=== PATIENT | male | born 1970 | race Caucasian/White ===

== ENCOUNTER 2018-08-19 11:10 | Outpatient (CLI) | payer OTHER ==
--- NOTE | 2018-08-19 12:34 | RAD ---
LUMBAR SPINE SERIES 4 VIEWS INCLUDING FLEXION AND EXTENSION: HISTORY: Low back pain. FINDINGS: Vertebral bodies are normal in height. There is marked disk narrowing at L5-S1. Osteophytic changes without significant disk narrowing are seen at L3-4 and L4-5. Limited motion is seen in the flexion or extension views. No spondylolisthesis. IMPRESSION: Degenerative changes of the spine. Marked disk narrowing at L5-S1. Prominent degenerative facet mat nges are seen. POS: [facility]
== END 2018-08-19 11:11 | disposition home or self-care (01) ==
LOC: TBSIIMAG 11:10
PROVIDERS: ATTEND Neurological Surgery
DX: M54.5 Low back pain (principal); M47.816 Spondylosis without myelopathy or radiculopathy, lumbar region; M51.37 Other intervertebral disc degeneration, lumbosacral region
CPT/HCPCS: 72110

== ENCOUNTER 2018-10-22 13:43 | Outpatient (CLI) | payer OTHER ==
--- NOTE | 2018-10-22 14:47 | MRI ---
MRI Lumbar Spine Noncontrast: HISTORY: Back pain, intervertebral disc disease COMPARISON: None FINDINGS: Conus medullaris is normal in morphology and terminates at the L1 level. Multilevel degenerative facet hypertrophy is present bilaterally. L1-2:No significant stenosis L2-3:Mild, right asymmetric disc bulge with slight effacement of ventral thecal sac L3-4:Mild broad-based disc bulge with slight effacement of ventral thecal sac L4-5:Moderate-sized disc extrusion of the right subarticular zone with impingement of traversing righ t L5 nerve root and moderate compression of the right aspect of the thecal sac. Mild bilateral neural foraminal narrowing. L5-S1:Degenerative disc disease with disc space narrowing and broad-based disc osteophyte producing m ild bilateral neural foraminal narrowing, left greater than right IMPRESSION: Moderate-sized disc extrusion at L4-5, with impingement of right L5 nerve root and moderate compressi on of thecal sac.
== END 2018-10-22 13:44 | disposition home or self-care (01) ==
LOC: TBSIIMAG 13:43
PROVIDERS: ATTEND Specialist
DX: M51.17 Intervertebral disc disorders with radiculopathy, lumbosacral region (principal); M51.26 Other intervertebral disc displacement, lumbar region; G95.20 Unspecified cord compression
CPT/HCPCS: 72148

== ENCOUNTER 2018-12-31 11:25 | Outpatient (CLI) | payer OTHER ==
--- NOTE | 2018-12-31 12:07 | RAD ---
XR Chest Pa Lat STANDARD HISTORY: Cough COMPARISON: 10/04/2016 FINDINGS: The heart size is normal. The lungs are well expanded without focal areas of consolidation, pneumothorax or pleural effusions. IMPRESSION: No radiographic evidence of acute cardiopulmonary process.
== END 2018-12-31 11:26 | disposition home or self-care (01) ==
LOC: BICRAD 11:25
PROVIDERS: ATTEND Family Medicine
DX: R05 Cough (principal)
CPT/HCPCS: 36415; 71046; 80053; 80061; 85025

== ENCOUNTER 2021-06-16 13:47 | Observation (INO) | payer BC, OTHER ==
[2021-06-16 14:25] LABS: #Basophils 0.1 thou/uL (0.0-0.2); #Eosinphils 0.5 thou/uL (0.0-0.7); #Lymphocytes 2.4 thou/uL (1.20-3.40); #Neutrophils 5.6 thou/uL (1.40-6.50); %Basophils 0.6 % (0.0-1.0); %Eosinophils 4.9 % (0.0-10.0); %Lymphocytes 25.7 % (21.0-51.0); %Monocytes 10.2 % (0.0-10.0); %Neutrophils 58.5 % (42.0-75.0); Hemoglobin 15.2 g/dL (14.0-18.0); Mean Corpuscular HGB CONC 33.7 g/dL (32.0-36.0); Mean Corpuscular Hemoglobin 29.4 pg (27.0-31.0); Mean Corpuscular Volume 87.2 fL (78.0-98.0); Mean Platelet Volume 9.2 fL (7.4-10.4); Platelet Count 231 thou/uL (130-400); Red Blood Cell (RBC) Count 5.19 mill/uL (4.70-6.10); White Blood Cell (WBC) Count 9.5 thou/uL (4.8-10.8)
[2021-06-16 14:54] LABS: ALT (SGPT) 45 U/L (8-55); AST (SGOT) 28 U/L (5-34); Albumin 4.1 g/dL (3.5-5.0); Alkaline Phosphatase 76 U/L (40-110); Anion Gap 11 mmol/L (10-20); BUN (Urea Nitrogen) 17 mg/dL (8.9-20.6); Bilirubin, Total 0.5 mg/dL (0.2-1.2); CK (CPK) 123 U/L (30-200); Calc. Creatinine Clearance 0 mL/min (70-130); Calcium 9.4 mg/dL (7.8-10.44); Carbon Dioxide 28 mmol/L (22-29); Chloride 103 mmol/L (98-107); Globulin 3.3 g/dL (2.4-3.5); Glucose 99 mg/dL (70-105); Lipase 27 U/L (8-78); Potassium 4.2 mmol/L (3.5-5.1); Protein, Total 7.4 g/dL (6.0-8.3); Sodium 138 mmol/L (136-145)
[2021-06-16] MEDS ORDERED: Aspirin Chewable 81 MG TAB ONE ×2 (15:23→15:25)
[2021-06-16] MEDS ORDERED: Enoxaparin Sodium 100 MG/ML SYRINGE ONE (15:23)
[2021-06-16 15:31] LABS: CKMB 1.1 ng/mL (0-6.6)
[2021-06-16] MEDS ORDERED: Calcium Carbonate 500 MG ChewTAB PO PRN (15:32)
[2021-06-16] MEDS ORDERED: Acetaminophen 325 MG TAB PO PRN (15:32)
[2021-06-16] MEDS ORDERED: Nitroglycerin 0.4 MG TAB (25 Tab Bottle) SL PRN (15:34)
[2021-06-16 17:19] LABS: SARS-CoV-2 NAA Rapid Test Not Detected (NotDetected)
[2021-06-16 18:59] VITALS: BMI 30.9
[2021-06-16 19:00] LABS: Hemoglobin A1c 6.5 % (4.0-6.0)
[2021-06-16 19:01] LABS: Magnesium 1.8 mg/dL (1.6-2.6); Phosphorus 3.7 mg/dL (2.3-4.7)
[2021-06-16 19:10] LABS: Troponin I 1.751 ng/mL (< 0.028)
[2021-06-16] MEDS ORDERED: Metoprolol Tartrate 50 MG TAB PO SCH (21:00)
[2021-06-16] MEDS ORDERED: Atorvastatin Calcium 40 MG TAB PO SCH (21:00)
[2021-06-16 22:58] LABS: CKMB 0.8 ng/mL (0-6.6)
[2021-06-16 23:04] LABS: Critical Call Chem Troponin I RESULT DECREASING; Troponin I 1.546 ng/mL (< 0.028)
[2021-06-17 04:57] LABS: #Basophils 0.1 thou/uL (0.0-0.2); #Eosinphils 0.4 thou/uL (0.0-0.7); #Lymphocytes 3.1 thou/uL (1.20-3.40); #Neutrophils 4.8 thou/uL (1.40-6.50); %Basophils 1.1 % (0.0-1.0); %Eosinophils 4.4 % (0.0-10.0); %Lymphocytes 32.6 % (21.0-51.0); %Monocytes 10.5 % (0.0-10.0); %Neutrophils 51.4 % (42.0-75.0); Hemoglobin 14.1 g/dL (14.0-18.0); Mean Corpuscular HGB CONC 34.4 g/dL (32.0-36.0); Mean Corpuscular Volume 87.2 fL (78.0-98.0); Mean Platelet Volume 9.4 fL (7.4-10.4); Platelet Count 190 thou/uL (130-400); Red Blood Cell (RBC) Count 4.71 mill/uL (4.70-6.10); White Blood Cell (WBC) Count 9.4 thou/uL (4.8-10.8)
[2021-06-17 05:18] LABS: Anion Gap 14 mmol/L (10-20); BUN (Urea Nitrogen) 20 mg/dL (8.9-20.6); Calc. Creatinine Clearance 107 mL/min (70-130); Calcium 8.9 mg/dL (7.8-10.44); Carbon Dioxide 22 mmol/L (22-29); Cardiac Risk 10.9 (Less than 4.5); Chloride 106 mmol/L (98-107); Cholesterol 163 mg/dl (< 200 Desired); Glucose 102 mg/dL (70-105); HDL Cholesterol 15 mg/dL (>60 Neg Risk); Potassium 4.4 mmol/L (3.5-5.1); Sodium 138 mmol/L (136-145); Triglycerides 934 mg/dL (Less than 150)
[2021-06-17 05:51] LABS: Amphetamine Not Detected (NotDetected); Barbiturates Screen Not Detected (NotDetected); Benzodiazepine Screen Not Detected (NotDetected); Cocaine Metabolite Screen Not Detected (NotDetected); Methadone Not Detected (NotDetected); Methamphetamine Not Detected (NotDetected); Opiate Screen Not Detected (NotDetected); Oxycodone Screen Not Detected (NotDetected); Phencyclidine (PCP) Not Detected (NotDetected); THC/Cannabinoid Screen Not Detected (NotDetected); Tricyclic Screen Not Detected (NotDetected)
[2021-06-17] MEDS ORDERED: Bupropion 150 MG XL TAB PO SCH (09:00)
[2021-06-17] MEDS ORDERED: Lisinopril 20 MG TAB PO SCH (09:00)
[2021-06-17] MEDS ORDERED: Amlodipine 5 MG TAB PO SCH (09:00)
[2021-06-17] MEDS ORDERED: Aspirin 81 mg Enteric Coated Tablet PO SCH (09:00)
[2021-06-17] MEDS ORDERED: Enoxaparin Sodium 100 MG/ML SYRINGE SC SCH (09:00)
[2021-06-17] MEDS ORDERED: Aspirin Chewable 81 MG TAB PO SCH (09:00)
[2021-06-17] MEDS ORDERED: Clopidogrel Bisulfate 75 MG TAB PO SCH (09:00)
[2021-06-17] MEDS ORDERED: Ezetimibe 10 MG TAB PO SCH (12:15)
[2021-06-17 20:06] VITALS: BP 122/77; TEMP 98.5
[2021-06-18] MEDS ORDERED: Ezetimibe 10 MG TAB PO SCH (09:00)
== END 2021-06-17 19:50 | disposition home or self-care (01) ==
LOC: ERS 13:47 → 2SW 17:00
PROVIDERS: ADMIT Family Medicine; ATTEND Family Medicine
DX: R07.89 Other chest pain (principal); R77.8 Other specified abnormalities of plasma proteins; I10 Essential (primary) hypertension; E78.5 Hyperlipidemia, unspecified; I25.2 Old myocardial infarction; E11.9 Type 2 diabetes mellitus without complications; Z87.891 Personal history of nicotine dependence; Z79.02 Long term (current) use of antithrombotics/antiplatelets; Z79.82 Long term (current) use of aspirin; Z79.899 Other long term (current) drug therapy; Z88.0 Allergy status to penicillin; Z95.5 Presence of coronary angioplasty implant and graft; Z20.822 Contact with and (suspected) exposure to COVID-19
CPT/HCPCS: 36415; 71045; 80048; 80053; 80061; 80306; 82550; 82553; 83036; 83690; 83735; 83880; 84100; 84443; 84484; 85025; 85379; 93005; 94760; 96372; G0378; J1650; U0002

== ENCOUNTER 2023-06-04 11:13 | Emergency (ER) | payer BC, SELFPAY ==
[2023-06-04 12:11] LABS: #Basophils 0.1 thou/uL (0.0-0.2); #Eosinphils 0.3 thou/uL (0.0-0.7); #Neutrophils 6.2 thou/uL (1.40-6.50); %Basophils 0.5 % (0.0-1.0); %Eosinophils 2.9 % (0.0-10.0); %Lymphocytes 22.6 % (21.0-51.0); %Monocytes 10.5 % (0.0-10.0); %Neutrophils 63.2 % (42.0-75.0); Hematocrit 43.8 % (42.0-52.0); Hemoglobin 14.1 g/dL (14.0-18.0); Mean Corpuscular HGB CONC 32.2 g/dL (32.0-36.0); Mean Corpuscular Volume 87.1 fl (78.0-98.0); Mean Platelet Volume 11.2 fL (7.4-10.4); Platelet Count 295 10x3/uL (130-400); RBC Distribution Width 13.9 % (11.5-14.5); Red Blood Cell (RBC) Count 5.03 mill/uL (4.70-6.10); White Blood Cell (WBC) Count 9.7 10x3/uL (4.8-10.8)
[2023-06-04 12:39] LABS: ALT (SGPT) 13 U/L (8-55); AST (SGOT) 14 U/L (5-34); Albumin 4.1 g/dL (3.5-5.0); Alkaline Phosphatase 52 U/L (40-110); Anion Gap 13 mmol/L (10-20); BUN (Urea Nitrogen) 17 mg/dL (8.4-25.7); Bilirubin, Total 0.6 mg/dL (0.2-1.2); Calc. Creatinine Clearance 0 mL/min (70-130); Calcium 8.9 mg/dL (7.8-10.44); Carbon Dioxide 22 mmol/L (22-29); Chloride 107 mmol/L (98-107); Estimated GFR 71; Globulin 2.9 g/dL (2.4-3.5); Glucose 116 mg/dL (70-105); Potassium 3.6 mmol/L (3.5-5.1); Sodium 138 mmol/L (136-145)
[2023-06-04 12:41] LABS: Troponin I Less than 0.010 ng/mL (< 0.028)
[2023-06-04] MEDS ORDERED: Dexamethasone 10 MG/ML VIAL ONE (12:54)
[2023-06-04] MEDS ORDERED: Acetaminophen 500 MG TAB ONE (12:54)
[2023-06-04] MEDS ORDERED: Metoclopramide HCl 10 MG/2 ML VIAL ONE (12:54)
== END 2023-06-04 15:07 | disposition home or self-care (01) ==
LOC: ERS 11:13
DX: G44.209 Tension-type headache, unspecified, not intractable (principal); I10 Essential (primary) hypertension; F17.210 Nicotine dependence, cigarettes, uncomplicated; I25.2 Old myocardial infarction; Z79.899 Other long term (current) drug therapy
CPT/HCPCS: 36415; 70450; 71045; 80053; 83880; 84443; 84484; 85025; 93005; 96365; 96375; J1100; J2765

== ENCOUNTER 2024-04-27 10:08 | Outpatient (CLI) | payer BC | END 2024-04-27 10:09 | disposition home or self-care (01) | LOC: SCSMRI 10:08 | PROVIDERS: ATTEND Specialist | DX: G44.89 Other headache syndrome (principal) | CPT/HCPCS: 70551 ==

== ENCOUNTER 2024-06-27 23:47 | Emergency (ER) | payer BC ==
[2024-06-28 00:11] LABS: #Basophils 0.08 10x3/uL (0.0-0.2); %Basophils 0.5 % (0.0-1.0); %Eosinophils 3.8 % (0.0-10.0); %Lymphocytes 19.8 % (21.0-51.0); %Monocytes 12.6 % (0.0-10.0); Hematocrit 43.7 % (42.0-52.0); Hemoglobin 14.2 g/dL (14.0-18.0); Mean Corpuscular HGB CONC 32.5 g/dL (32.0-36.0); Mean Corpuscular Hemoglobin 27.8 pg (27.0-31.0); Mean Corpuscular Volume 85.7 fL (78.0-98.0); Mean Platelet Volume 11.2 fL (7.4-10.4); Platelet Count 254 10x3/uL (130-400); RBC Distribution Width 13.3 % (11.5-14.5)
[2024-06-28] MEDS ORDERED: Acetaminophen 500 MG TAB ONE (00:12)
[2024-06-28] MEDS ORDERED: Ondansetron PF 4 MG/2 ML Vial ONE (00:24)
[2024-06-28 00:28] LABS: ALT (SGPT) 25 U/L (8-55); AST (SGOT) 15 U/L (5-34); Albumin 4.2 g/dL (3.5-5.0); Alkaline Phosphatase 63 U/L (40-110); Anion Gap 14 mmol/L (10-20); BUN (Urea Nitrogen) 16 mg/dL (8.4-25.7); Bilirubin, Total 0.7 mg/dL (0.2-1.2); CK (CPK) 95 U/L (30-200); Calc. Creatinine Clearance 0 mL/min (70-130); Calcium 9.5 mg/dL (7.8-10.44); Carbon Dioxide 26 mmol/L (22-29); Chloride 101 mmol/L (98-107); Estimated GFR 62; Globulin 3.5 g/dL (2.4-3.5); Glucose 93 mg/dL (70-105); Magnesium 1.8 mg/dL (1.6-2.6); Potassium 4.1 mmol/L (3.5-5.1); Protein, Total 7.7 g/dL (6.0-8.3); Sodium 137 mmol/L (136-145)
[2024-06-28 00:32] LABS: Troponin I Less than 0.010 ng/mL (< 0.028)
== END 2024-06-28 02:22 | disposition home or self-care (01) ==
LOC: ERS 23:47
DX: R55 Syncope and collapse (principal); N17.9 Acute kidney failure, unspecified
CPT/HCPCS: 70450; 71045; 72125; 80053; 82550; 83735; 83880; 84146; 84484; 85025; 93005; 96361; 96374; G0390; J2405